=== PATIENT | female | born 1975 | race Caucasian/White ===

== ENCOUNTER 2017-08-17 20:56 | Emergency (ER) | payer MEDICAID ==
[~2017-08-17] VITALS: Ht 154.9 cm; Wt 102.1 kg
[~2017-08-17 20:56] MED LIST: AMIT75TA2 PO; CIPR500T4 PO; CITA20TA12 PO; DOCU-143 PO; FAMO-119 PO; HYDR-3812 PO; ONDA8TAB13 PO; PHEN-639 PO; PREG150C PO; TIZA4TAB11 PO; TRAM-42 PO
--- OUTSIDE RECORDS SUMMARY | 2017-08-17 21:01 | XMS REPORT ---
Author Author MARÍA DE LA PAZ Organization [employer] Address Unknown Phone Unavailable Care Team Providers Care Diesel Technician Name Role Phone MARÍA DE LA PAZ CP Unavailable Allergies, Adverse Reactions, Alerts Substance Reaction Event Type N.K.D.A. Info Not Available Non Drug Allergy Problems Problem Type Condition Code Onset Dates Condition Status Assessment Encounter for dental examination Z01.20 Active Problem Unspecified myalgia and myositis 729.1 Active Medications Medication Code System Code Instructions Start Date End Date Status Dosage Gabapentin (PHN) [facility] [address]-31 300 MG Orally Once a day 1 tablet with evening meal one time Amoxicillin [facility] [address]-22 500 MG Orally Three times a day Nov 15, 2015 Nov 25, 2015 1 capsule Amitriptyline HCl [facility] [address]-41 25 MG Orally Once a day 1 tablet [place] [facility] [address]-63 5-325 MG Orally every 6 hrs Nov 15, 2015 Nov 18, 2015 1 tablet as needed Procedures Procedure Coding System Code Date Dental no charge CPT-4 D0099 Nov 15, 2015 Billing Notes on claim CPT-4 EC109 Nov 15, 2015 LTD ORAL EVALUATION - PROBLEM FOCUS CPT-4 D0140 Nov 15, 2015 Results No Known Results Summary Purpose [employer] Submission
--- OUTSIDE RECORDS SUMMARY | 2017-08-17 21:01 | XMS REPORT ---
Author Author MARÍA DE LA PAZ Organization [employer] Address Unknown Phone Unavailable Care Team Providers Care Health Social Work Professor Name Role Phone MARÍA DE LA PAZ CP Unavailable Allergies, Adverse Reactions, Alerts Substance Reaction Event Type N.K.D.A. Info Not Available Non Drug Allergy Problems Problem Type Condition Code Onset Dates Condition Status Assessment Encounter for dental examination Z01.20 Active Assessment Retained dental root K08.3 Active Problem Unspecified myalgia and myositis 729.1 Active Medications Medication Code System Code Instructions Start Date End Date Status Dosage [place] [facility] [address]-26 5-325 MG Orally every 6 hrs Oct 12, 2015 Oct 16, 2015 1 tablet as needed Amitriptyline HCl [facility] [address]-72 25 MG Orally Once a day 1 tablet Gabapentin (PHN) [facility] [address]-91 300 MG Orally Once a day 1 tablet with evening meal one time Amoxicillin [facility] [address]-34 500 MG Orally Three times a day Oct 12, 2015 Oct 19, 2015 1 capsule Procedures Procedure Coding System Code Date EXTRAC ERUPTED TOOTH/EXPOSED ROOT CPT-4 D7140 Oct 11, 2015 Vital Signs Date/Time: Oct 12, 2015 Blood Pressure Diastolic 76 mmHg Blood Pressure Systolic 112 mmHg Cardiac Monitoring Heart Rate 89 bpm Results No Known Results Summary Purpose [employer] Submission
--- OUTSIDE RECORDS SUMMARY | 2017-08-17 21:01 | XMS REPORT ---
Author Author MARÍA DE LA PAZ Organization [employer] Address Unknown Phone Unavailable Care Team Providers Care Public Accountant Name Role Phone MARÍA DE LA PAZ Unavailable Allergies No Known Allergies Problems Problem Type Condition Code Onset Dates Condition Status Problem Unspecified myalgia and myositis 729.1 Active Medications No Known Medications Results No Known Results Summary Purpose [employer] Submission
--- OUTSIDE RECORDS SUMMARY | 2017-08-17 21:01 | XMS REPORT ---
Author Author MARÍA DE LA PAZ Organization [employer] Address Unknown Phone Unavailable Care Team Providers Care Oil Pump Station Operator Chief Name Role Phone MARÍA DE LA PAZ CP Unavailable Allergies No Known Allergies Problems Problem Type Condition Code Onset Dates Condition Status Assessment Dental examination Z01.20 Active Assessment Pulpitis K04.0 Active Problem Unspecified myalgia and myositis 729.1 Active Medications Medication Code System Code Instructions Start Date End Date Status Dosage [place] [facility] [address]-02 5-325 MG Orally every 6 hrs Dec 01, 2015 1 tablet as needed Procedures Procedure Coding System Code Date RESIN COMPOS - 1 SURFACE POSTERIOR CPT-4 D2391 Dec 01, 2015 RESIN COMPOS - ONE SURFACE ANTERIOR CPT-4 D2330 Dec 01, 2015 RESIN COMPOS - ONE SURFACE ANTERIOR CPT-4 D2330 Dec 01, 2015 RESIN COMPOS - 2 SURFACES ANTERIOR CPT-4 D2331 Dec 01, 2015 EXTRAC ERUPTED TOOTH/EXPOSED ROOT CPT-4 D7140 Dec 01, 2015 Vital Signs Date/Time: Dec 01, 2015 Blood Pressure Diastolic 83 mmHg Blood Pressure Systolic 123 mmHg Results No Known Results Summary Purpose [employer] Submission
--- OUTSIDE RECORDS SUMMARY | 2017-08-17 21:01 | XMS REPORT | Clinical Summary ---
Author Author [facility] Organization [facility] Address Unknown Phone Unavailable Care Team Providers Care Astronomy Professor Name Role Phone PCP Unavailable Source Comments Some departments are not documenting in the electronic medical record. If you do not see the information that you expected, contact Release of Information in the Health Information Management department at [phone] for further assistance in locating additional records.[facility] Allergies No Known Allergies Current Medications Prescription Sig. Disp. Refills Start End Date Status Date pregabalin (LYRICA) 200 Take 200 mg by mouth Active mg capsule twice daily. citalopram (CELEXA) 40 mg Take 40 mg by mouth Active tablet daily. TIZANIDINE HCL (ZANAFLEX Take 5 mg by mouth daily. Active PO) zolpidem (AMBIEN) 10 mg Take 10 mg by mouth at Active tablet bedtime as needed for Sleep. ASPIRIN/ACETAMINOPHEN/CAF Take 1 Tab by mouth as Active FEINE (EXCEDRIN MIGRAINE Needed. PO) butalbital/acetaminophen/ Take 1 Tab by mouth every Active caffeine(+) (FIORICET) 4 hours as needed for 50/325/40 mg tablet Headache. acetaZOLAMIDE (DIAMOX) Take 1 Tab by mouth twice 60 Tab 4 03/29/20 Active 250 mg tabletIndications: daily. 17 Chronic daily headache, Medication overuse headache Active Problems Problem Noted Date Chronic daily headache 03/29/2017 Medication overuse headache 03/29/2017 Family History Medical History Relation Name Comments None Reported Brother Unknown to Patient Father SLE Maternal Aunt Stroke Maternal Grandmother None Reported Mother Heart Disease Sister SLE Sister None Reported Sister None Reported Sister Relation Name Status Comments Brother Alive Father Alive Maternal Aunt Alive Maternal Grandmother Mother Alive Sister Alive Sister Alive Sister Alive Social History Tobacco Use Types Packs/Day Years Used Date Former Smoker Cigarettes 1.5 10 Quit: 11/19/2014 Alcohol Use Drinks/Week oz/Week Comments No 0 Standard 0.0 No history drinks or equivalent Sex Assigned at Date Recorded Not on file Last Filed Vital Signs Vital Sign Reading Time Taken Blood Pressure 128/86 03/29/2017 12:12 PM CDT Pulse 88 03/29/2017 12:12 PM CDT Temperature 37.2 C (98.9 F) 03/29/2017 12:12 PM CDT Respiratory Rate 16 03/29/2017 12:12 PM CDT Oxygen Saturation 100% 03/29/2017 12:12 PM CDT Inhaled Oxygen - - Concentration Weight 104.3 kg (230 lb) 03/29/2017 12:12 PM CDT Height 154.9 cm (5' 1") 03/29/2017 12:12 PM CDT Body Mass Index 43.46 03/29/2017 12:12 PM CDT Plan of Treatment Health Maintenance Due Date Last Done Comments PHYSICAL (COMPREHENSIVE) 1983 EXAM PERTUSSIS VACCINE 1987 TETANUS VACCINE 1993 CERVICAL CANCER SCREENING 2006 BREAST CANCER SCREENING 2016 INFLUENZA VACCINE 08/19/2017 Results Not on filefrom Last 3 Months
[2017-08-17 22:30] LABS: BASOPHILS % (AUTO) 0 % (0-10); EOSINOPHILS # (AUTO) 0.1 10^3/uL (0.0-0.3); EOSINOPHILS % (AUTO) 1 % (0-10); LYMPHOCYTES # (AUTO) 2.6 X 10^3 (1.0-4.0); LYMPHOCYTES % (AUTO) 34 % (12-44); MEAN CORPUSCULAR HEMOGLOBIN 31 PG (25-34); MEAN CORPUSCULAR HGB CONC 33 G/DL (32-36); MEAN CORPUSCULAR VOLUME 94 FL (80-99); MEAN PLATELET VOLUME 9.7 FL (7.4-10.4); MONOCYTES # (AUTO) 0.8 X 10^3 (0.0-1.0); MONOCYTES % (AUTO) 11 % (0-12); NEUTROPHILS # (AUTO) 4.1 X 10^3 (1.8-7.8); NEUTROPHILS % (AUTO) 54 % (42-75); PLATELET COUNT 294 10^3/uL (130-400); RED BLOOD COUNT 4.31 10^6/uL (4.35-5.85); WHITE BLOOD COUNT 7.7 10^3/uL (4.3-11.0)
[2017-08-17 22:40] LABS: ALANINE AMINOTRANSFERASE 85 U/L (0-55); ANION GAP 13 MMOL/L (5-14); ASPARTATE AMINO TRANSFERASE 40 U/L (5-34); BILIRUBIN,TOTAL 0.2 MG/DL (0.1-1.0); BLOOD UREA NITROGEN 11 MG/DL (7-18); BUN/CREATININE RATIO 13; CALCIUM 9.6 MG/DL (8.5-10.1); CARBON DIOXIDE 22 MMOL/L (21-32); CHLORIDE 109 MMOL/L (98-107); CREATININE SERUM 0.85 MG/DL (0.60-1.30); GFR ESTIMATED > 60; GLUCOSE 124 MG/DL (70-105); LIPASE 22 U/L (8-78); MAGNESIUM 1.9 MG/DL (1.8-2.4); POTASSIUM 3.6 MMOL/L (3.6-5.0); SODIUM 144 MMOL/L (135-145); TOTAL PROTEIN 7.9 GM/DL (6.4-8.2)
[2017-08-17 23:00] LABS: TROPONIN I < 0.30 NG/ML (<0.30)
--- NOTE | 2017-08-17 23:03 | ED General ---
General Chief Complaint: Respiratory Problems Stated Complaint: SOB/CHEST TIGHTNESS Nursing Triage Note: PT REPORTS CAN NOT GET BREATHE ALL DAY. FELT "LOOPY" ALSO. PT APPEARS ANXIOUS WITH HYPERVENTILATION UP TO 26 BREATHES A MIN. Nursing Sepsis Screen: No Definite Risk Source of Information: Patient Exam Limitations: No Limitations Allergies and Home Medications Allergies Coded Allergies: No Known Drug Allergies (Unverified , 01/26/16) Home Medications Amitriptyline HCl 75 Mg Tablet, 75 MG PO HS, (Reported) Ciprofloxacin HCl 500 Mg Tablet, 500 MG PO BID, #14 Ref 0 Prescribed by: CONTRERAS SCHMIDT on 07/29/162246 Citalopram Hydrobromide 20 Mg Tablet, 20 MG PO HS, (Reported) Famotidine 20 Mg Tablet, 20 MG PO BID, #60 Ref 0 Prescribed by: CONTRERAS SCHMIDT on 07/29/162255 Ondansetron 8 Mg Tab.rapdis, 8 MG PO Q6H PRN for NAUSEA/VOMITING, #10 Ref 0 Prescribed by: CONTRERAS SCHMIDT on 07/29/162246 Phenazopyridine HCl 100 Mg Tablet, 100 MG PO Q4H PRN for PAIN, #14 Ref 0 Prescribed by: CONTRERAS SCHMIDT on 07/29/162246 Pregabalin 150 Mg Capsule, 150 MG PO, (Reported) Tizanidine HCl 4 Mg Tablet, 8 MG PO HS, (Reported) TAKE 2 (4MG) TABS Past Dhhavkz-Ahvgfa-Rgifpb Hx Patient Social History Alcohol Use: Denies Use Recreational Drug Use: No Smoking Status: Former Smoker Type Used: Cigarettes Recent Foreign Travel: No Contact w/Someone Who Travel: No Recent Infectious Disease Expo: No Recent Hopitalizations: No Immunizations Up To Date Tetanus Booster (TDap): Unknown Seasonal Allergies Seasonal Allergies: No Surgeries History of Surgeries: Yes Surgeries: Gallbladder, Tubal Ligation Respiratory History of Respiratory Disorde: No Cardiovascular History of Cardiac Disorders: No Neurological History of Neurological Disord: Yes Reproductive System Last Menstrual Period: Aug 15, 2017 Genitourinary Genitourinary Disorders: Kidney Stones Gastrointestinal History of Gastrointestinal Di: No Gastrointestinal Disorders: Gall Bladder Disease Musculoskeletal History of Musculoskeletal Dis: Yes Musculoskeletal Disorders: Fibromyalgia Endocrine History of Endocrine Disorders: No HEENT Hearing Impairment: Hard of Hearing Cancer History of Cancer: No Psychosocial History of Psychiatric Problem: No Behavioral Health Disorders: Depression Integumentary History of Skin or Integumenta: No Blood Transfusions History of Blood Disorders: No Family Medical History Significant Family History: No Pertinent Family Hx Physical Exam Vital Signs Vital Sign - Last 12Hours 08/17/17 21:10 Temp 97.2 Pulse 100 Resp 26 B/P (MAP) 172/106 Pulse Ox 97 O2 Delivery Room Air Capillary Refill : Less Than 3 Seconds Progress/Results/Core Measures Results/Orders Lab Results Laboratory Tests Test 08/17/17 21:20 Range/Units White Blood Count 7.7 4.3-11.0 10^3/uL Red Blood Count 4.31 L 4.35-5.85 10^6/uL Hemoglobin 13.3 11.5-16.0 G/DL Hematocrit 41 35-52 % Mean Corpuscular Volume 94 80-99 FL Mean Corpuscular Hemoglobin 31 25-34 PG Mean Corpuscular Hemoglobin Concent 33 32-36 G/DL Red Cell Distribution Width 13.0 10.0-14.5 % Platelet Count 294 130-400 10^3/uL Mean Platelet Volume 9.7 7.4-10.4 FL Neutrophils (%) (Auto) 54 42-75 % Lymphocytes (%) (Auto) 34 12-44 % Monocytes (%) (Auto) 11 0-12 % Eosinophils (%) (Auto) 1 0-10 % Basophils (%) (Auto) 0 0-10 % Neutrophils # (Auto) 4.1 1.8-7.8 X 10^3 Lymphocytes # (Auto) 2.6 1.0-4.0 X 10^3 Monocytes # (Auto) 0.8 0.0-1.0 X 10^3 Eosinophils # (Auto) 0.1 0.0-0.3 10^3/uL Basophils # (Auto) 0.0 0.0-0.1 10^3/uL Sodium Level 144 135-145 MMOL/L Potassium Level 3.6 3.6-5.0 MMOL/L Chloride Level 109 H 98-107 MMOL/L Carbon Dioxide Level 22 21-32 MMOL/L Anion Gap 13 5-14 MMOL/L Blood Urea Nitrogen 11 7-18 MG/DL Creatinine 0.85 0.60-1.30 MG/DL Estimat Glomerular Filtration Rate > 60 BUN/Creatinine Ratio 13 Glucose Level 124 H 70-105 MG/DL Calcium Level 9.6 8.5-10.1 MG/DL Magnesium Level 1.9 1.8-2.4 MG/DL Total Bilirubin 0.2 0.1-1.0 MG/DL Aspartate Amino Transf (AST/SGOT) 40 H 5-34 U/L Alanine Aminotransferase (ALT/SGPT) 85 H 0-55 U/L Alkaline Phosphatase 143 H 40-136 U/L Troponin I < 0.30 <0.30 NG/ML Total Protein 7.9 6.4-8.2 GM/DL Albumin 4.0 3.2-4.5 GM/DL Lipase 22 8-78 U/L TSH [place] Testing 1.22 0.35-4.94 UIU/ML My Orders Orders - HANY MENJIVAR MD Chest Pa/Lat (2 View) (08/17/17 22:21) Cbc With Automated Diff (08/17/17 22:21) Comprehensive Metabolic Panel (08/17/17 22:21) Magnesium (08/17/17 22:21) Thyroid Analyzer (08/17/17 22:21) Troponin I (08/17/17 22:21) Saline Lock/Iv-Start (08/17/17 22:21) Ekg Tracing (08/17/17 22:21) Monitor-Rhythm Ecg Trace Only (08/17/17 22:21) Lipase (08/17/17 22:21) Vital Signs/I&O Vital Sign - Last 12Hours 08/17/17 21:10 Temp 97.2 Pulse 100 Resp 26 B/P (MAP) 172/106 Pulse Ox 97 O2 Delivery Room Air Blood Pressure Mean: 128 Progress Note : Progress Note Workup was unremarkable. Patient feels much better now and is laughing with her friends. I strongly advised her to be checked for sleep apnea as she did have an episode of mild hypoxia (O2 sat 88 percent) while she was in deep sleep. O2 sat did rebound to 97 percent upon waking. She was advised to avoid sedating medications such as Ambien or Zanaflex until she is screened for sleep apnea. Chest pain appeared atypical as it was reproducible with palpation. ECG Initial ECG Impression Date: Aug 17, 2017 Initial ECG Impression Time: 21:12 Initial ECG Rate: 104 Initial ECG Rhythm: S.Tach Comment Sinus tachycardia with no ST elevation or depression. No abnormal intervals or axis deviation. Diagnostic Imaging Diagonstic Imaging: Xray Plain Films/CT/US/NM/MRI: chest Comments Chest x-ray viewed by me and report not available. No acute abnormalities appreciated. Departure Impression Impression: Primary Impression: Atypical chest pain Additional Impressions: Shortness of breath Nausea and vomiting Qualified Codes: R11.2 - Nausea with vomiting, unspecified Disposition: HOME, SELF-CARE Condition: Improved Departure-Patient Inst. Referrals: NO,LOCAL PHYSICIAN (PCP/Family) Primary Care Physician Patient Instructions: Chest Pain That Is Not Caused by the Heart (DC), Obstructive Sleep Apnea, Adult (DC) Add. Discharge Instructions: Follow-up with your primary care provider as soon as possible. Requests to be screened for sleep apnea. Until your screen for sleep apnea and cleared by your doctor, avoid taking sedating medications such as muscle relaxers or Ambien. Return to care if symptoms worsen. Work toward weight loss to improve your breathing and reduce risk of sleep apnea. All discharge instructions reviewed with patient and/or family. Voiced understanding. Copy Copies To 1: CINDY BAPTISTE MD, JOSHUA T MD Aug 17, 2017 23:03
[2017-08-18] VITALS: BP 146/88
--- NOTE | 2017-08-18 07:11 | Diagnostic Imaging Report ---
Clinical indication: Patient with shortness of air onset earlier today. Exam: Chest x-ray PA and lateral views. Comparisons: Chest x-ray dated 07/29/2016. Findings: Lungs/pleura: Lungs are clear. There is no pneumothorax. There is no pleural effusion. Mediastinum: Unremarkable. Pulmonary vasculature: Unremarkable. Heart: Unremarkable. Bones/extrathoracic soft tissue: Unremarkable. Impression: There is no radiographic evidence of acute cardiopulmonary process. Dictated by: Dictated on workstation # [id number]
== END 2017-08-18 | disposition home or self-care (01) ==
LOC: EDUNIT# 20:56 → ER 20:57
DX: R07.89 Other chest pain (principal); R06.02 Shortness of breath; R11.2 Nausea with vomiting, unspecified; F32.9 Major depressive disorder, single episode, unspecified; Z87.448 Personal history of other diseases of urinary system; Z87.891 Personal history of nicotine dependence; Z98.51 Tubal ligation status; Z87.442 Personal history of urinary calculi
CPT/HCPCS: 36415; 71020; 80053; 83690; 83735; 84443; 84484; 85025; 93005; 93041

== ENCOUNTER → 2019-08-19 | Outpatient (CLI) | payer MEDICAID ==
[~2019-08-19] MED LIST changes: +ACHD5005 PO; -HYDR-3812 PO
--- NOTE | 2019-08-19 16:26 | Diagnostic Imaging Report ---
PROCEDURE: US Non-ob pelvis comp/trans. TECHNIQUE: Multiple realtime grayscale images were obtained of the pelvis in various projections endovaginally. Transabdominal imaging was also performed. INDICATION: Menorrhagia. COMPARISON: There are no prior pelvic ultrasound examinations available for comparison. FINDINGS: The CT abdomen/pelvis exam of 07/29/2016 noted that the endometrial lining of the uterus was thickened. On this study the uterus is nongravid and prominent measuring 9.0 x 5.4 x 4.8 cm. The endometrial line is slightly thickened measuring 8 mm. (Normal 5 mm or less). This finding is nonspecific. Correlation with the patient's menstrual cycle will be recommended. Along the posterior aspect of the uterine body/fundus on the right there is a small 1.2 x 0.9 x 1.1 cm rounded hypoechoic area. This may represent a small fibroid. Both ovaries were identified and were generally unremarkable. There is no solid pelvic mass or free fluid collection noted. IMPRESSION: 1. There is no evidence for an acute pelvic abnormality. 2. The endometrial lining of the uterus is slightly thickened but this finding is nonspecific. Correlation with the patient's menstrual cycle is recommended. 3. There does appear to be a small fibroid along the posterior aspect of the uterine body/fundus on the right. Dictated by: Dictated on workstation # [id number]
--- NOTE | 2019-08-19 20:48 | Diagnostic Imaging Report ---
EXAM: Digital mammogram, bilateral screening. COMPARISON: This is the patient's baseline study. There are no current complaints. FINDINGS: There are scattered fibroglandular densities in both breasts which could obscure a lesion. There is no primary or secondary sign of malignancy noted. IMPRESSION: 1. There is no evidence of malignancy. 2. The patient should have her annual bilateral screening mammogram on schedule in August of 2020. ACR BI-RADS Category 1: Negative. Result letter will be mailed to the patient. Note: At least 10% of breast cancer is not imaged by mammography. Dictated by: Dictated on workstation # [id number]
== END ==
LOC: RAD 13:18
PROVIDERS: ATTEND Obstetrics & Gynecology
DX: Z12.31 Encounter for screening mammogram for malignant neoplasm of breast (principal); N92.0 Excessive and frequent menstruation with regular cycle; N94.6 Dysmenorrhea, unspecified; Z87.898 Personal history of other specified conditions; Z80.49 Family history of malignant neoplasm of other genital organs
CPT/HCPCS: 76830; 76856; 77067

== ENCOUNTER 2019-09-04 08:56 | Outpatient (CLI) | payer MEDICAID ==
[~2019-09-04] VITALS: Ht 157.5 cm; Wt 116.0 kg
[2019-09-04] MEDS ORDERED: LISD50CA PO (09:10)
[2019-09-04] MEDS ORDERED: CITA40TA11 PO (09:10)
[2019-09-04] MEDS ORDERED: PREG200C PO (09:10)
[2019-09-04 09:27] VITALS: BP 137/90
[2019-09-04 09:48] LABS: BASOPHILS % (AUTO) 0 % (0-10); EOSINOPHILS # (AUTO) 0.2 10^3/uL (0.0-0.3); EOSINOPHILS % (AUTO) 4 % (0-10); HEMATOCRIT 40 % (35-52); HEMOGLOBIN 13.2 G/DL (11.5-16.0); LYMPHOCYTES # (AUTO) 2.2 X 10^3 (1.0-4.0); LYMPHOCYTES % (AUTO) 41 % (12-44); MEAN CORPUSCULAR HEMOGLOBIN 31 PG (25-34); MEAN CORPUSCULAR HGB CONC 33 G/DL (32-36); MEAN CORPUSCULAR VOLUME 93 FL (80-99); MEAN PLATELET VOLUME 9.4 FL (7.4-10.4); MONOCYTES # (AUTO) 0.6 X 10^3 (0.0-1.0); MONOCYTES % (AUTO) 10 % (0-12); NEUTROPHILS # (AUTO) 2.4 X 10^3 (1.8-7.8); NEUTROPHILS % (AUTO) 44 % (42-75); PLATELET COUNT 255 10^3/uL (130-400); RED CELL DISTRIBUTION WIDTH 13.7 % (10.0-14.5); WHITE BLOOD COUNT 5.4 10^3/uL (4.3-11.0)
[2019-09-04 09:49] LABS: BILIRUBIN,URINE NEGATIVE (NEGATIVE); CLARITY,URINE CLEAR; COLOR,URINE YELLOW; GLUCOSE, URINE (UA) NEGATIVE (NEGATIVE); KETONES,URINE NEGATIVE (NEGATIVE); LEUKOCYTE ESTERASE ,URINE 1+ (NEGATIVE); NITRITE,URINE NEGATIVE (NEGATIVE); PH,URINE 6 (5-9); PROTEIN,URINE 2+ (NEGATIVE)
[2019-09-04 09:56] LABS: BACTERIA,URINE FEW /HPF; SQUAMOUS EPITHELIAL CELL,UR 25-50 /HPF
== END 2019-09-04 09:35 | disposition home or self-care (01) ==
LOC: PREOP 08:56
PROVIDERS: ATTEND Obstetrics & Gynecology
DX: Z01.812 Encounter for preprocedural laboratory examination (principal); N92.0 Excessive and frequent menstruation with regular cycle; N81.9 Female genital prolapse, unspecified; D64.9 Anemia, unspecified; D25.9 Leiomyoma of uterus, unspecified
CPT/HCPCS: 36415; 81000; 85025; 87081; 87088

== ENCOUNTER → 2021-02-22 | Outpatient (CLI) | payer MEDICAID ==
[~2021-02-22] MED LIST changes: +ACET-78 PO; -CIPR500T4 PO; +CIPR500T5 PO; +CITA40TA11 PO; +ESTR1PAT73 TD; +IBUP-844 PO; +LISD50CA PO; +OXC5T PO; +PREG200C PO
== END ==
LOC: LABNPT 05:41
PROVIDERS: ATTEND Psychiatry & Neurology Neurology
DX: Z20.822 Contact with and (suspected) exposure to COVID-19 (principal)
CPT/HCPCS: 87635

== ENCOUNTER 2021-02-24 19:08 | Outpatient (CLI) | payer MEDICAID | END 2021-02-25 06:34 | disposition home or self-care (01) | LOC: SLEEP 19:08 | PROVIDERS: ATTEND Psychiatry & Neurology Neurology | DX: G47.33 Obstructive sleep apnea (adult) (pediatric) (principal) | CPT/HCPCS: 95810 ==

== ENCOUNTER → 2021-08-04 | Outpatient (CLI) | payer MEDICAID | LOC: LABNPT 06:21 | PROVIDERS: ATTEND Psychiatry & Neurology Neurology | DX: Z20.822 Contact with and (suspected) exposure to COVID-19 (principal) | CPT/HCPCS: 87635 ==

== ENCOUNTER → 2021-09-05 | Outpatient (CLI) | payer MEDICAID | LOC: LABNPT 06:49 | PROVIDERS: ATTEND Psychiatry & Neurology Neurology | DX: Z20.822 Contact with and (suspected) exposure to COVID-19 (principal) | CPT/HCPCS: 87635 ==

== ENCOUNTER 2021-09-07 19:32 | Outpatient (CLI) | payer MEDICAID | END 2021-09-08 05:14 | disposition home or self-care (01) | LOC: SLEEP 19:32 | PROVIDERS: ATTEND Psychiatry & Neurology Neurology | DX: G47.33 Obstructive sleep apnea (adult) (pediatric) (principal) | CPT/HCPCS: 95811 ==

== ENCOUNTER 2021-12-15 11:12 | Inpatient (IN) | payer MEDICAID ==
[~2021-12-15] VITALS: Ht 154.9 cm; Wt 102.0 kg
[~2021-12-15 11:12] MED LIST changes: -CITA40TA11 PO; +CITA40TA13 PO
--- NOTE | 2021-12-15 11:30 | ED Cough/URI ---
General Chief Complaint: COVID19 Suspect/Confirmed Stated Complaint: COVID+,SOB, Source: patient Exam Limitations: no limitations (ARMANDO RAJAN APRN) History of Present Illness Date Seen by Provider: Dec 15, 2021 Time Seen by Provider: 11:29 (ARMANDO RAJAN APRN) Initial Comments Here with complaint of significant shortness of breath. Diagnosis Covid positive on 12/13/[address] [facility]. She has not had vaccination. She states that she has had cough for about a month but started feeling worse last week and went to the emergency department on Sunday. They told her to try the meds that they prescribed (azithromycin) and supportive care and to return to another facility if she starts to get short of breath. Does have nausea but no vomiting. Notes that her breathing became much worse this morning and presented here with initial O2 sat in the 70s. She is a non-smoker. Timing/Duration: week, getting worse Severity/Quality: moderate, dry cough Prior Episodes/Possible Cause: occasional episodes Modifying Factors: Worse With Activity, Worse With Coughing; Improves With Oxygen, Improves With Rest Associated Symptoms: cough, fever/chills, muscle aches, nasal congestion, shortness of breath, sore throat (RENNY SHIN MD) Allergies and Home Medications Allergies Coded Allergies: No Known Drug Allergies (Unverified , 01/26/16) Patient Home Medication List Home Medication List Reviewed: Yes (RENNY SHIN MD) Acetaminophen (Acetaminophen) 500 Mg Tablet, 1,000 MG PO Q8HR Prescribed by: MARLENE JONES on 09/17/19 09 Citalopram Hydrobromide (Citalopram HBr) 40 Mg Tablet, 40 MG PO HS, (Reported) Entered as Reported by: PAULA PATEL on 09/04/19 09 Docusate Sodium (Colace) 100 Mg Capsule, 100 MG PO BID Prescribed by: MARLENE JONES on 09/17/19 09 Estradiol (Climara Patch Weekly 0.1mg/hr) 1 Each Patch.tdwk, 1 EACH TD Weekly Prescribed by: MARLENE JONES on 09/17/19 09 Ibuprofen (Ibu) 600 Mg Tablet, 600 MG PO Q6HR Prescribed by: MARLENE JONES on 09/17/19 0908 Lisdexamfetamine Dimesylate (Vyvanse) 50 Mg Capsule, 50 MG PO DAILY, (Reported) Entered as Reported by: PAULA PATEL on 09/04/19 0910 Oxycodone Hcl (Oxycodone IR) 5 Mg Tab, 5 MG PO Q4HR PRN for pain Prescribed by: MARLENE JONES on 09/17/19 0908 Pregabalin (Lyrica) 200 Mg Capsule, 200 MG PO BID, (Reported) Entered as Reported by: PAULA PATEL on 09/04/19 0910 Tizanidine HCl (Zanaflex) 4 Mg Tablet, 4 MG PO HS, (Reported) Entered as Reported by: PAULA PATEL on 01/26/16 1443 Review of Systems Review of Systems Constitutional: see HPI EENTM: nose congestion, throat pain Respiratory: cough, short of breath Cardiovascular: No edema, No palpitations Gastrointestinal: No abdominal pain; nausea; No vomiting Genitourinary: no symptoms reported Musculoskeletal: see HPI Skin: no symptoms reported (RENNY SHIN MD) All Other Systems Reviewed Negative Unless Noted: Yes (RENNY SHIN MD) Past Ixjfque-Jsreqc-Caucwr Hx Patient Social History Tobacco Use?: No Substance use?: No Alcohol Use?: No (RENNY SHIN MD) Immunizations Up To Date Tetanus Booster (TDap): Unknown (ARMANDO RAJAN APRN) Seasonal Allergies Seasonal Allergies: Yes (ARMANDO RAJAN APRN) Past Medical History Surgeries: Yes Gallbladder, Tubal Ligation Respiratory: Yes (POSSIBLE SLEEP APNEA, HAS APPT WITH DR AVILA FOR TESTING) Currently Using CPAP: No Currently Using BIPAP: No Cardiac: No Neurological: Yes Headaches /Migraines Genitourinary: Yes Kidney Stones Gastrointestinal: No Gall Bladder Disease Musculoskeletal: Yes Fibromyalgia Endocrine: No HEENT: Yes Hearing Impairment: Hard of Hearing Cancer: No Psychosocial: Yes Sleep Difficulties, Depression Integumentary: No Blood Disorders: No (ARMANDO RAJAN APRN) Surgeries: Yes Gallbladder, Tubal Ligation Respiratory: No Cardiac: No Neurological: Yes Headaches /Migraines Reproductive Disorders: No Musculoskeletal: Yes Fibromyalgia (RENNY SHIN MD) Family Medical History Reviewed Nursing Family Hx (RENNY SHIN MD) Alcoholism 19 FATHER No Pertinent Family Hx (ARMANDO RAJAN APRN) Physical Exam Vital Signs - First Documented 12/15/21 12/15/21 11:23 12:13 Temp 37.1 Pulse 92 Resp 16 B/P (MAP) 115/57 (76) Pulse Ox 79 O2 Delivery OxyMask O2 Flow Rate 10.00 FiO2 80 (RENNY SHIN MD) Capillary Refill : (ARMANDO RAJAN APRN) Height: 5'1.00" Weight: 225lbs. 0.0oz. 102.949471it; 46.76 BMI Method:Stated (ARMANDO RAJAN APRN) General Appearance: obese HEENT: PERRL/EOMI, pharynx normal Neck: full range of motion, supple Respiratory: no accessory muscle use, decreased breath sounds, wheezing, expiration Cardiovascular: no murmur, tachycardia Gastrointestinal: non tender, soft; No tenderness Extremities: non-tender, normal inspection, no pedal edema, no calf tenderness Neurologic/Psychiatric: alert, normal mood/affect, oriented x 3 Skin: normal color, warm/dry (RENNY SHIN MD) Focused Exam Lactate Level 12/15/21 11:15: Lactic Acid Level 2.18*H (RENNY SHIN MD) Lactic Acid Level Laboratory Tests Test 12/15/21 11:15 Lactic Acid Level 2.18 MMOL/L (0.50-2.00) *H (RENNY SHIN MD) Progress/Results/Core Measures Suspected Sepsis SIRS Temperature: Pulse: Respiratory Rate: Blood Pressure / Mean: (ARMANDO RAJAN APRN) Results/Orders Lab Results Laboratory Tests Test 12/15/21 11:15 12/15/21 11:46 Range/Units Lactic Acid Level 2.18 *H 0.50-2.00 MMOL/L White Blood Count 7.9 4.3-11.0 10^3/uL Red Blood Count 4.75 3.80-5.11 10^6/uL Hemoglobin 14.4 11.5-16.0 g/dL Hematocrit 44 35-52 % Mean Corpuscular Volume 94 80-99 fL Mean Corpuscular Hemoglobin 30 25-34 pg Mean Corpuscular Hemoglobin Concent 32 32-36 g/dL Red Cell Distribution Width 13.4 10.0-14.5 % Platelet Count 243 130-400 10^3/uL Mean Platelet Volume 9.6 9.0-12.2 fL Immature Granulocyte % (Auto) 1 % Neutrophils (%) (Auto) 80 H 42-75 % Lymphocytes (%) (Auto) 12 12-44 % Monocytes (%) (Auto) 7 0-12 % Eosinophils (%) (Auto) 0 0-10 % Basophils (%) (Auto) 0 0-10 % Neutrophils # (Auto) 6.3 1.8-7.8 10^3/uL Lymphocytes # (Auto) 0.9 L 1.0-4.0 10^3/uL Monocytes # (Auto) 0.6 0.0-1.0 10^3/uL Eosinophils # (Auto) 0.0 0.0-0.3 10^3/uL Basophils # (Auto) 0.0 0.0-0.1 10^3/uL Immature Granulocyte # (Auto) 0.1 0.0-0.1 10^3/uL D-Dimer 0.93 H 0.00-0.49 UG/ML Sodium Level 136 135-145 MMOL/L Potassium Level 4.3 3.6-5.0 MMOL/L Chloride Level 99 98-107 MMOL/L Carbon Dioxide Level 25 21-32 MMOL/L Anion Gap 12 5-14 MMOL/L Blood Urea Nitrogen 14 7-18 MG/DL Creatinine 0.83 0.60-1.30 MG/DL Estimat Glomerular Filtration Rate 89 BUN/Creatinine Ratio 17 Glucose Level 221 H 70-105 MG/DL Calcium Level 8.9 8.5-10.1 MG/DL Corrected Calcium 9.1 8.5-10.1 MG/DL Total Bilirubin 0.4 0.1-1.0 MG/DL Aspartate Amino Transf (AST/SGOT) 210 H 5-34 U/L Alanine Aminotransferase (ALT/SGPT) 163 H 0-55 U/L Alkaline Phosphatase 165 H 40-136 U/L C-Reactive Protein High Sensitivity 0.67 H 0.00-0.50 MG/DL Total Protein 7.7 6.4-8.2 GM/DL Albumin 3.8 3.2-4.5 GM/DL Procalcitonin 0.20 H <0.10 NG/ML (RENNY SHIN MD) My Orders Orders - RENNY SHIN MD Lactated Ringers (Lr 1000 Ml Iv Solution (12/15/21 11:56) Albuterol Inhaler (Albuterol) (12/15/21 12:00) Dexamethasone Tablet (Decadron Tablet) (12/15/21 12:00) Covid-19 External Lab Results (12/15/21 11:58) Isolation Central Supply Req (12/15/21 11:58) (RENNY SHIN MD) Medications Given in ED Current Medications Medications Dose Ordered Sig/Job Route Start Time Stop Time Status Last Admin Dose Admin Albuterol Sulfate 4 PUFFS Q2H PRN IH 12/15/21 12:00 12/15/21 12:06 8.5 GM Ondansetron HCl 8 mg ONCE ONCE IVP 12/15/21 11:45 12/15/21 11:46 DC 12/15/21 12:05 8 MG (RENNY SHIN MD) Vital Signs/I&O 12/15/21 12/15/21 12/15/21 11:23 11:23 12:13 Temp 37.1 Pulse 92 Resp 16 B/P (MAP) 115/57 (76) Pulse Ox 79 95 O2 Delivery OxyMask Vapotherm O2 Flow Rate 10.00 30.00 FiO2 80 (RENNY SHIN MD) Vital Signs/I&O Capillary Refill : (ARMANDO RAJAN APRN) Progress Note : Progress Note Seen and evaluated. IV, labs, blood cultures and lactic acid ordered. Chest x- ray ordered. This does show bilateral patchy infiltrates consistent with Covid pneumonia. We will go ahead and initiate Decadron 6 mg p.o. as well as albuterol inhaler 4 puffs via chamber now and 1 L of LR bolus. She did receive Zofran 4 mg IV for nausea. I did discuss with her regarding Actemra and its emergency use authorization including risk and benefits and this is a study medication. Patient elects to take that if available. Patient will need admission. She is requiring 10 L via simple facemask is in the low to mid 90s with that. We will change to Vapotherm as I think this will be more effective and then call admitting team after labs are available. Monitor patient. 1230: Patient is currently on Vapotherm at 30 L and 80% and is satting 94% and comfortable. Patient will require admission. 23 8: I did discuss the case with Dr. Ferrera and he accepts patient for admission, inpatient status. Discussed with patient who agrees with plan. (RENNY SHIN MD) Diagnostic Imaging Diagonstic Imaging: Xray Plain Films/CT/US/NM/MRI: chest Comments Bilateral patchy infiltrates consistent with Covid pneumonia. See full report for details. [facility] [place], [place] NAME: HERBER BUT[facility]ER [facility] REC#: [id number] PT STATUS: REG ER : 1975 PHYSICIAN: ARMANDO RAJAN APRN ADMIT DATE: 12/15/21/ER Signed Date of Exam:12/15/21 CHEST 1 VIEW, AP/PA ONLY INDICATION: Covid. Comparison made with prior examination 08/17/2017 FINDINGS: Heart size is normal. There are bilateral pulmonary infiltrates. There is no pleural fusion or pneumothorax. Mediastinum is unremarkable. IMPRESSION: Patchy bilateral pulmonary infiltrates suspect for Covid pneumonia. Dictated by: Dictated on workstation # [id number] Dict: 12/15/21 1212 Trans: 12/15/21 1219 [id number] Interpreted by: GINGER COMBS MD Electronically signed by: GINGER COMBS MD 12/15/21 1219 Reviewed: Reviewed by Me (RENNY SHIN MD) Departure Communication (Admissions) Time/Spoke to Admitting Phy: 12:38 (RENNY SHIN MD) Impression Primary Impression: Pneumonia due to COVID-19 virus Additional Impression: Hypoxia Disposition: ADMITTED INPATIENT Condition: Stable Admissions Decision to Admit Reason: Admit from ER (General) Decision to Admit/Date: Dec 15, 2021 Time/Decision to Admit Time: 12:38 (RENNY SHIN MD) Departure-Patient Inst. Referrals: CINDY BAPTISTE MD (PCP/Family) Primary Care Physician ARMANDO RAJAN APRN Dec 15, 2021 11:29 RENNY SHIN MD Dec 15, 2021 11:58
[2021-12-15] MEDS ORDERED: ONDANSETRON 4 MG/2 ML (SDV) Z0FRAN IVP ONE (11:45)
[2021-12-15 11:51] LABS: BASOPHILS % (AUTO) 0 % (0-10); EOSINOPHILS % (AUTO) 0 % (0-10); HEMATOCRIT 44 % (35-52); HEMOGLOBIN 14.4 g/dL (11.5-16.0); LYMPHOCYTES # (AUTO) 0.9 10^3/uL (1.0-4.0); LYMPHOCYTES % (AUTO) 12 % (12-44); MEAN CORPUSCULAR HEMOGLOBIN 30 pg (25-34); MEAN CORPUSCULAR HGB CONC 32 g/dL (32-36); MEAN CORPUSCULAR VOLUME 94 fL (80-99); MEAN PLATELET VOLUME 9.6 fL (9.0-12.2); MONOCYTES # (AUTO) 0.6 10^3/uL (0.0-1.0); MONOCYTES % (AUTO) 7 % (0-12); NEUTROPHILS # (AUTO) 6.3 10^3/uL (1.8-7.8); NEUTROPHILS % (AUTO) 80 % (42-75); PLATELET COUNT 243 10^3/uL (130-400); WHITE BLOOD COUNT 7.9 10^3/uL (4.3-11.0)
[2021-12-15] MEDS ORDERED: LACTATED RINGERS 1,000 ML IV STA (11:56)
[2021-12-15 12:00] LABS: ALBUMIN 3.8 GM/DL (3.2-4.5); POTASSIUM 4.3 MMOL/L (3.6-5.0)
[2021-12-15] MEDS ORDERED: RT-ALBUTEROL HFA 8.5 GM INHALER IH PRN ×2 (12:00→15:30)
[2021-12-15] MEDS ORDERED: dexAMETHasone 6 MG TAB (DECADRON) PO SCH (12:00)
[2021-12-15 12:01] LABS: CALCIUM 8.9 MG/DL (8.5-10.1)
[2021-12-15 12:03] LABS: TOTAL PROTEIN 7.7 GM/DL (6.4-8.2)
[2021-12-15 12:04] LABS: BILIRUBIN,TOTAL 0.4 MG/DL (0.1-1.0)
[2021-12-15 12:06] LABS: CREATININE SERUM 0.83 MG/DL (0.60-1.30)
--- NOTE | 2021-12-15 12:17 | Diagnostic Imaging Report ---
INDICATION: Covid. Comparison made with prior examination 08/17/2017 FINDINGS: Heart size is normal. There are bilateral pulmonary infiltrates. There is no pleural fusion or pneumothorax. Mediastinum is unremarkable. IMPRESSION: Patchy bilateral pulmonary infiltrates suspect for Covid pneumonia. Dictated by: Dictated on workstation # [id number]
[2021-12-15] MEDS ORDERED: fentaNYL INJ 100 MCG/2 ML AMP IVP STA (13:23)
[2021-12-15] MEDS ORDERED: KETOROLAC 30 MG/ML VIAL IVP STA (13:23)
[2021-12-15] MEDS ORDERED: ONDANSETRON 4 MG (ZOFRAN) ORAL DISSOLVE TAB PO PRN (13:30)
[2021-12-15] MEDS ORDERED: MELATONIN 3 MG TABLET PO PRN (13:30)
[2021-12-15] MEDS ORDERED: ONDANSETRON 4 MG/2 ML (SDV) Z0FRAN IV PRN (13:30)
[2021-12-15] MEDS ORDERED: ANTACID SUSP 30 ML UDC (MYLANTA) PO PRN (13:30)
[2021-12-15] MEDS ORDERED: polyethylene glycoL POWDER 17 GM (MIRALAX) PACK PO PRN (13:30)
[2021-12-15] MEDS ORDERED: diphenhydrAMINE 25 MG TAB (BENADRYL) PO PRN (13:30)
[2021-12-15] MEDS ORDERED: TOCILIZUMAB INJECTION (NON-FOR 800 MG in NS (IVPB) 60 ML IV ONE (14:00)
[2021-12-15 14:21] VITALS: BP 124/66
[2021-12-15 15:18] VITALS: BP 124/66
[2021-12-15 15:30] VITALS: BP 123/68
[2021-12-15] MEDS: inSUlin ASPART (NovoLOG) 1 UNIT/0.01 ML (CHARGE PER UNIT) SC SCH ×2 (16:22→20:50)
[2021-12-15] MEDS: ENOXAPARIN 60 MG/0.6 ML (LOVENOX) SYR SC SCH (16:22)
[2021-12-15] MEDS: ACETAMINOPHEN 325 MG TABLET PO PRN ×2 (16:22→20:56)
[2021-12-15] MEDS: RT-ALBUTEROL HFA 8.5 GM INHALER IH SCH ×2 (18:39→21:56)
[2021-12-15 20:56] VITALS: BP 136/74
[2021-12-15 23:04] VITALS: BP 120/58
[2021-12-16] MEDS: RT-ALBUTEROL HFA 8.5 GM INHALER IH SCH ×6 (02:03→21:58)
[2021-12-16 03:42] LABS: BASOPHILS % (AUTO) 0 % (0-10); EOSINOPHILS % (AUTO) 0 % (0-10); HEMATOCRIT 43 % (35-52); HEMOGLOBIN 14.3 g/dL (11.5-16.0); LYMPHOCYTES # (AUTO) 0.7 10^3/uL (1.0-4.0); LYMPHOCYTES % (AUTO) 20 % (12-44); MEAN CORPUSCULAR HEMOGLOBIN 31 pg (25-34); MEAN CORPUSCULAR HGB CONC 33 g/dL (32-36); MEAN CORPUSCULAR VOLUME 92 fL (80-99); MEAN PLATELET VOLUME 9.8 fL (9.0-12.2); MONOCYTES # (AUTO) 0.3 10^3/uL (0.0-1.0); MONOCYTES % (AUTO) 9 % (0-12); NEUTROPHILS # (AUTO) 2.5 10^3/uL (1.8-7.8); NEUTROPHILS % (AUTO) 70 % (42-75); PLATELET COUNT 211 10^3/uL (130-400); WHITE BLOOD COUNT 3.6 10^3/uL (4.3-11.0)
[2021-12-16 03:54] LABS: ALBUMIN 3.6 GM/DL (3.2-4.5)
[2021-12-16 03:55] LABS: POTASSIUM 3.9 MMOL/L (3.6-5.0)
[2021-12-16 03:56] LABS: TOTAL PROTEIN 7.7 GM/DL (6.4-8.2)
[2021-12-16 03:57] LABS: CALCIUM 8.8 MG/DL (8.5-10.1)
[2021-12-16 03:58] LABS: BILIRUBIN,TOTAL 0.4 MG/DL (0.1-1.0)
[2021-12-16 04:01] LABS: CREATININE SERUM 0.74 MG/DL (0.60-1.30)
[2021-12-16 04:02] LABS: BILIRUBIN,DIRECT 0.2 MG/DL (0.0-0.3); BILIRUBIN,INDIRECT 0.2 MG/DL
[2021-12-16 04:03] LABS: MAGNESIUM 2.1 MG/DL (1.6-2.4)
[2021-12-16] MEDS: POTASSIUM CL 10MEQ/50ML IVPB 50 ML IV SCH (04:04)
[2021-12-16] MEDS: KCL 20 MEQ TAB (K-DUR) PO SCH (04:04)
[2021-12-16] MEDS: MAGNESIUM 1 GM/100 ML IVPB 100 ML IV SCH (04:14)
[2021-12-16 05:00] VITALS: BP 139/72
[2021-12-16] MEDS: ENOXAPARIN 60 MG/0.6 ML (LOVENOX) SYR SC SCH ×2 (05:12→17:11)
[2021-12-16] MEDS: dexAMETHasone 6 MG TAB (DECADRON) PO SCH (05:12)
[2021-12-16] MEDS: inSUlin ASPART (NovoLOG) 1 UNIT/0.01 ML (CHARGE PER UNIT) SC SCH ×4 (05:12→20:28)
[2021-12-16 08:08] VITALS: BP 137/77
[2021-12-16] MEDS ORDERED: PHARMACY TO DOSE SQ SCH (09:00)
[2021-12-16 11:07] VITALS: BP 145/87
[2021-12-16] MEDS ORDERED: ALBU18HF2 INH (11:19)
[2021-12-16] MEDS ORDERED: PREG200C28 PO (11:19)
[2021-12-16] MEDS ORDERED: TIZA-186 PO (11:19)
[2021-12-16] MEDS ORDERED: ESTR1TAB24 PO (11:19)
[2021-12-16] MEDS ORDERED: CETI10TA17 PO (11:19)
[2021-12-16] MEDS ORDERED: METH4TAB10 PO (11:19)
[2021-12-16] MEDS ORDERED: AZIT250T12 PO (11:19)
[2021-12-16] MEDS ORDERED: CITA40TA13 PO (11:20)
[2021-12-16 15:32] VITALS: BP 129/76
--- NOTE | 2021-12-16 16:55 | History & Physical-Hospitalist ---
History of Present Illness HPI/Chief Complaint Rosanne Dickerson is a 46 year old female with PMH fibromyalgia, chronic pain, morbid obesity, who presented with shortness of breath. She has also had a cough. She reports fevers and chills. She reports nausea and vomiting. She has been having diarrhea today. She has had body aches. She did not receive a COVID vaccine. Source: patient Exam Limitations: no limitations Date Seen 12/16/21 Time Seen by a Provider: 12:30 Attending Physician Nathan Godinez MD PCP Serge Shaw MD Referring Physician Date of Admission Dec 15, 2021 at 12:44 Home Medications & Allergies Home Medications Reviewed patient Home Medication Reconciliation performed by pharmacy medication reconciliations roofing technician and/or nursing. Patients Allergies have been reviewed. Allergies Allergies Coded Allergies No Known Drug Allergies (Unverified01/26/16) Past Gpetpyn-Qiaees-Lxoqce Hx Patient Social History Tobacco Use?: No Substance use?: No Alcohol Use?: No Pt feels they are or have been: No Immunizations Up To Date Tetanus Booster (TDap): Unknown Seasonal Allergies Seasonal Allergies: Yes Current Status Advance Directives: No Communicates: Verbally Primary Language: Colombian Preferred Spoken Language: Colombian Sensory deficits: Hearing impairment Past Medical History Surgeries: Gallbladder, Tubal Ligation Currently Using CPAP: No Currently Using BIPAP: No Headaches /Migraines Kidney Stones Gall Bladder Disease Fibromyalgia Hearing Impairment: Hard of Hearing Sleep Difficulties, Depression Blood Disorders: No Family Medical History Reviewed Nursing Family Hx Alcoholism 19 FATHER No Pertinent Family Hx Review of Systems Constitutional: chills, fever, malaise EENTM: no symptoms reported Respiratory: cough, short of breath Cardiovascular: no symptoms reported Gastrointestinal: diarrhea, nausea, vomiting Genitourinary: no symptoms reported Musculoskeletal: muscle pain Skin: no symptoms reported Psychiatric/Neurological: No Symptoms Reported Physical Exam Physical Exam Vital Signs Vital Signs - First Documented 12/15/21 12/15/21 11:23 12:13 Temp 37.1 Pulse 92 Resp 16 B/P (MAP) 115/57 (76) Pulse Ox 79 O2 Delivery OxyMask O2 Flow Rate 10.00 FiO2 80 Capillary Refill : Less Than 3 Seconds Height, Weight, BMI Height: 5'1.00" Weight: 225lbs. 0.0oz. 102.317597jx; 42.51 BMI Method:Stated General Appearance: No Apparent Distress, Obese HEENT: PERRL/EOMI, Pharynx Normal Neck: Normal Inspection, Supple Respiratory: No Respiratory Distress, Decreased Breath Sounds, Other (wearing Vapotherm) Cardiovascular: Regular Rate, Rhythm, No Edema, No Murmur Gastrointestinal: Normal Bowel Sounds, Soft Extremity: Normal Inspection, No Pedal Edema Neurologic/Psychiatric: Alert, No Motor/Sensory Deficits, Normal Mood/Affect Skin: Warm/Dry, Erythema (facial flushing) Results Results/Procedures Labs Laboratory Tests 12/15/21 11:46 12/16/21 03:25 Patient resulted labs reviewed. Imaging: Reviewed Imaging Report Assessment/Plan Admission Diagnosis Acute respiratory failure due to COVID-19 Admission Status: Inpatient Order (span 2 midnights) Reason for Inpatient Admission: Respiratory failure Assessment and Plan Acute respiratory failure due to COVID-19 Lymphopenia due to COVID-19 Elevated LFTs Elevated d-dimer Started on Decadron ER discussed Actemra, risks/benefits/EUA use, patient agrees Ddimer mildly elevated Prophylactic Lovenox Procalcitonin <0.25, antibiotics not indicted Vapotherm as needed Hyperglycemia Likely type II diabetes mellitus Steroid induced hyperglycemia Blood sugar >200 on arrival A1C pending Levemir Sliding scale insulin Chronic pain Fibromyalgia Continue home meds Morbid obesity Clinically significant, no acute management needs DVT prophylaxis: Lovenox Diagnosis/Problems Diagnosis/Problems (1) Acute respiratory failure due to COVID-19 Status: Acute (2) Pneumonia due to COVID-19 virus Status: Acute (3) Lymphopenia due to COVID-19 virus Status: Acute (4) Elevated d-dimer Status: Acute (5) Elevated LFTs Status: Acute (6) Hyperglycemia Status: Acute (7) Steroid-induced hyperglycemia Status: Acute (8) Chronic pain Status: Chronic (9) Fibromyalgia Status: Chronic (10) Morbid obesity Status: Chronic NATHAN GODINEZ MD Dec 16, 2021 16:55
[2021-12-16] MEDS ORDERED: guaiFENesin/DM (ROBITUSSIN DM) 10 ML UDC PO PRN (17:00)
[2021-12-16] MEDS: ACETAMINOPHEN 325 MG TABLET PO PRN (17:11)
[2021-12-16 20:09] VITALS: BP 147/87
[2021-12-16] MEDS: ESTRADIOL 1 MG TAB (ESTRACE) PO SCH (20:28)
[2021-12-16] MEDS: PREGABALIN 100 MG (LYRICA) CAPSULE PO SCH (20:28)
[2021-12-16 23:30] VITALS: BP 137/84
[2021-12-17] MEDS: RT-ALBUTEROL HFA 8.5 GM INHALER IH SCH ×6 (02:37→22:15)
[2021-12-17 03:11] VITALS: BP 97/52
[2021-12-17 06:28] LABS: BASOPHILS % (AUTO) 0 % (0-10); EOSINOPHILS % (AUTO) 0 % (0-10); HEMATOCRIT 44 % (35-52); HEMOGLOBIN 14.2 g/dL (11.5-16.0); LYMPHOCYTES # (AUTO) 0.9 10^3/uL (1.0-4.0); LYMPHOCYTES % (AUTO) 18 % (12-44); MEAN CORPUSCULAR HEMOGLOBIN 30 pg (25-34); MEAN CORPUSCULAR HGB CONC 32 g/dL (32-36); MEAN CORPUSCULAR VOLUME 94 fL (80-99); MEAN PLATELET VOLUME 9.5 fL (9.0-12.2); MONOCYTES # (AUTO) 0.4 10^3/uL (0.0-1.0); MONOCYTES % (AUTO) 8 % (0-12); NEUTROPHILS # (AUTO) 3.7 10^3/uL (1.8-7.8); NEUTROPHILS % (AUTO) 73 % (42-75); PLATELET COUNT 273 10^3/uL (130-400)
[2021-12-17 06:38] LABS: CALCIUM 8.8 MG/DL (8.5-10.1); CREATININE SERUM 0.76 MG/DL (0.60-1.30); MAGNESIUM 2.1 MG/DL (1.6-2.4); POTASSIUM 3.9 MMOL/L (3.6-5.0)
[2021-12-17] MEDS: POTASSIUM CL 10MEQ/50ML IVPB 50 ML IV SCH (06:40)
[2021-12-17] MEDS: KCL 20 MEQ TAB (K-DUR) PO SCH (06:40)
[2021-12-17] MEDS: MAGNESIUM 1 GM/100 ML IVPB 100 ML IV SCH (06:43)
[2021-12-17] MEDS: ENOXAPARIN 60 MG/0.6 ML (LOVENOX) SYR SC SCH (06:50)
[2021-12-17] MEDS: dexAMETHasone 6 MG TAB (DECADRON) PO SCH (06:50)
[2021-12-17] MEDS: inSUlin ASPART (NovoLOG) 1 UNIT/0.01 ML (CHARGE PER UNIT) SC SCH ×4 (06:50→20:43)
[2021-12-17 08:00] VITALS: BP 121/68
[2021-12-17] MEDS ORDERED: LISDEXAMFETAMINE 50 MG PO SCH (09:00)
[2021-12-17] MEDS: PREGABALIN 100 MG (LYRICA) CAPSULE PO SCH ×2 (10:01→20:42)
[2021-12-17] MEDS: LORATADINE (CLARITIN) 10 MG TAB PO SCH (10:01)
[2021-12-17 12:00] VITALS: BP 142/84
[2021-12-17 16:00] VITALS: BP 145/86
--- NOTE | 2021-12-17 16:35 | Progress Note - Hospitalist ---
Subjective HPI/CC On Admission Date Seen by Provider: Dec 17, 2021 Time Seen by Provider: 12:30 Rosanne Dickerson is a 46 year old female with PMH fibromyalgia, chronic pain, morbid obesity, who presented with shortness of breath. She has also had a cough. She reports fevers and chills. She reports nausea and vomiting. She has been having diarrhea today. She has had body aches. She did not receive a COVID vaccine. Subjective/Events-last exam She is still short of breath. Her cough is a little better. She has not been eating much. She denies pain. She is still having diarrhea. Focused Exam Lactate Level 12/15/21 11:15: Lactic Acid Level 2.18*H 12/15/21 13:54: Lactic Acid Level 1.40 Objective Exam Vital Signs Vital Signs Date Time Temp Pulse Resp B/P (MAP) Pulse Ox O2 Delivery O2 Flow Rate FiO2 12/17/21 14:51 91 Vapotherm 27.00 55 12/17/21 12:00 36.3 88 22 142/84 (103) Capillary Refill : Less Than 3 Seconds General Appearance: No Apparent Distress, Obese Respiratory: No Respiratory Distress, Decreased Breath Sounds Cardiovascular: Regular Rate, Rhythm, No Murmur Gastrointestinal: Normal Bowel Sounds, Non Tender, Soft Extremity: Normal Inspection, Non Tender, No Pedal Edema Neurologic/Psychiatric: Alert, Depressed Affect Skin: Normal Color, Warm/Dry Results/Procedures Lab Laboratory Tests 12/17/21 05:08 12/17/21 05:58 Patient resulted labs reviewed. Imaging: Reviewed Imaging Report Assessment/Plan Assessment and Plan Assess & Plan/Chief Complaint Acute respiratory failure due to COVID-19 Lymphopenia due to COVID-19 Elevated LFTs Elevated d-dimer Decadron s/p Actemra Ddimer mildly elevated, trending down Prophylactic Lovenox Vapotherm as needed, requirement slightly improved New onset type II diabetes mellitus Steroid induced hyperglycemia A1C 7.4% Levemir Sliding scale insulin Chronic pain Fibromyalgia Continue home meds Morbid obesity Clinically significant, no acute management needs DVT prophylaxis: Lovenox Diagnosis/Problems Diagnosis/Problems (1) Acute respiratory failure due to COVID-19 Status: Acute (2) Pneumonia due to COVID-19 virus Status: Acute (3) Lymphopenia due to COVID-19 virus Status: Acute (4) Elevated d-dimer Status: Acute (5) Elevated LFTs Status: Acute (6) New onset type 2 diabetes mellitus Status: Acute (7) Steroid-induced hyperglycemia Status: Acute (8) Chronic pain Status: Chronic (9) Fibromyalgia Status: Chronic (10) Morbid obesity Status: Chronic NATHAN GODINEZ MD Dec 17, 2021 16:35
[2021-12-17] MEDS: ENOXAPARIN 40 MG/0.4 ML (LOVENOX) SYR SC SCH (17:03)
[2021-12-17] MEDS: ACETAMINOPHEN 325 MG TABLET PO PRN (17:03)
[2021-12-17] MEDS: ESTRADIOL 1 MG TAB (ESTRACE) PO SCH (20:42)
[2021-12-17 23:44] VITALS: BP 94/60
[2021-12-18] MEDS: RT-ALBUTEROL HFA 8.5 GM INHALER IH SCH ×6 (02:39→22:39)
[2021-12-18 06:09] LABS: BASOPHILS % (AUTO) 0 % (0-10); EOSINOPHILS % (AUTO) 0 % (0-10); HEMATOCRIT 43 % (35-52); HEMOGLOBIN 14.1 g/dL (11.5-16.0); LYMPHOCYTES % (AUTO) 25 % (12-44); MEAN CORPUSCULAR HEMOGLOBIN 30 pg (25-34); MEAN CORPUSCULAR HGB CONC 33 g/dL (32-36); MEAN CORPUSCULAR VOLUME 93 fL (80-99); MEAN PLATELET VOLUME 9.4 fL (9.0-12.2); MONOCYTES # (AUTO) 0.4 10^3/uL (0.0-1.0); MONOCYTES % (AUTO) 9 % (0-12); NEUTROPHILS # (AUTO) 2.5 10^3/uL (1.8-7.8); NEUTROPHILS % (AUTO) 65 % (42-75); PLATELET COUNT 269 10^3/uL (130-400); WHITE BLOOD COUNT 3.9 10^3/uL (4.3-11.0)
[2021-12-18 06:26] LABS: CALCIUM 8.8 MG/DL (8.5-10.1); CREATININE SERUM 0.68 MG/DL (0.60-1.30); MAGNESIUM 2.1 MG/DL (1.6-2.4); POTASSIUM 3.8 MMOL/L (3.6-5.0)
[2021-12-18] MEDS: MAGNESIUM 1 GM/100 ML IVPB 100 ML IV SCH (06:31)
[2021-12-18] MEDS: POTASSIUM CL 10MEQ/50ML IVPB 50 ML IV SCH (06:31)
[2021-12-18] MEDS: inSUlin ASPART (NovoLOG) 1 UNIT/0.01 ML (CHARGE PER UNIT) SC SCH ×4 (06:31→21:02)
[2021-12-18] MEDS: KCL 20 MEQ TAB (K-DUR) PO SCH (06:31)
[2021-12-18] MEDS: ENOXAPARIN 40 MG/0.4 ML (LOVENOX) SYR SC SCH ×2 (06:44→16:35)
[2021-12-18] MEDS: dexAMETHasone 6 MG TAB (DECADRON) PO SCH (06:44)
[2021-12-18 07:47] VITALS: BP 129/81
[2021-12-18] MEDS: PREGABALIN 100 MG (LYRICA) CAPSULE PO SCH ×2 (08:55→21:02)
[2021-12-18] MEDS: LORATADINE (CLARITIN) 10 MG TAB PO SCH (08:55)
--- NOTE | 2021-12-18 14:25 | Progress Note - Hospitalist ---
Subjective HPI/CC On Admission Date Seen by Provider: Dec 18, 2021 Time Seen by Provider: 11:10 Rosanne Dickerson is a 46 year old female with PMH fibromyalgia, chronic pain, morbid obesity, who presented with shortness of breath. She has also had a cough. She reports fevers and chills. She reports nausea and vomiting. She has been having diarrhea today. She has had body aches. She did not receive a COVID vaccine. Subjective/Events-last exam She is not feeling much better. She is still short of breath. She is coughing up phlegm. She has a good appetite. Objective Exam Vital Signs Vital Signs Date Time Temp Pulse Resp B/P (MAP) Pulse Ox O2 Delivery O2 Flow Rate FiO2 12/18/21 12:42 94 High Flow N/C 7.00 12/18/21 08:00 55 12/18/21 07:47 36.1 83 20 129/81 (97) Capillary Refill : Less Than 3 Seconds General Appearance: No Apparent Distress, Obese Respiratory: No Respiratory Distress, Decreased Breath Sounds Cardiovascular: Regular Rate, Rhythm, No Murmur Gastrointestinal: Normal Bowel Sounds, Non Tender, Soft Extremity: Normal Inspection, Non Tender, No Pedal Edema Neurologic/Psychiatric: Alert, No Motor/Sensory Deficits, Normal Mood/Affect Skin: Normal Color, Warm/Dry Results/Procedures Lab Laboratory Tests 12/18/21 05:45 Patient resulted labs reviewed. Imaging: Reviewed Imaging Report Assessment/Plan Assessment and Plan Assess & Plan/Chief Complaint Acute respiratory failure due to COVID-19 Lymphopenia due to COVID-19 Elevated LFTs Elevated d-dimer Decadron s/p Actemra Ddimer mildly elevated, trending down Prophylactic Lovenox Vapotherm as needed, requirement improving New onset type II diabetes mellitus Steroid induced hyperglycemia A1C 7.4% Levemir Sliding scale insulin Chronic pain Fibromyalgia Continue home meds Morbid obesity Clinically significant, no acute management needs DVT prophylaxis: Lovenox Diagnosis/Problems Diagnosis/Problems (1) Acute respiratory failure due to COVID-19 Status: Acute (2) Pneumonia due to COVID-19 virus Status: Acute (3) Lymphopenia due to COVID-19 virus Status: Acute (4) Elevated d-dimer Status: Acute (5) Elevated LFTs Status: Acute (6) New onset type 2 diabetes mellitus Status: Acute (7) Steroid-induced hyperglycemia Status: Acute (8) Chronic pain Status: Chronic (9) Fibromyalgia Status: Chronic (10) Morbid obesity Status: Chronic NATHAN GODINEZ MD Dec 18, 2021 14:25
[2021-12-18] MEDS: ACETAMINOPHEN 325 MG TABLET PO PRN (15:25)
[2021-12-18 16:00] VITALS: BP 136/76
[2021-12-18 20:13] VITALS: BP 129/81
[2021-12-18] MEDS: ESTRADIOL 1 MG TAB (ESTRACE) PO SCH (21:01)
[2021-12-19 00:30] VITALS: BP 117/67
[2021-12-19] MEDS: RT-ALBUTEROL HFA 8.5 GM INHALER IH SCH ×3 (02:16→10:40)
[2021-12-19 03:24] LABS: BASOPHILS % (AUTO) 0 % (0-10); EOSINOPHILS % (AUTO) 0 % (0-10); HEMATOCRIT 43 % (35-52); HEMOGLOBIN 14.3 g/dL (11.5-16.0); LYMPHOCYTES % (AUTO) 28 % (12-44); MEAN CORPUSCULAR HEMOGLOBIN 31 pg (25-34); MEAN CORPUSCULAR HGB CONC 33 g/dL (32-36); MEAN CORPUSCULAR VOLUME 92 fL (80-99); MEAN PLATELET VOLUME 9.4 fL (9.0-12.2); MONOCYTES # (AUTO) 0.4 10^3/uL (0.0-1.0); MONOCYTES % (AUTO) 11 % (0-12); NEUTROPHILS # (AUTO) 2.1 10^3/uL (1.8-7.8); NEUTROPHILS % (AUTO) 60 % (42-75); PLATELET COUNT 271 10^3/uL (130-400); WHITE BLOOD COUNT 3.5 10^3/uL (4.3-11.0)
[2021-12-19 03:53] LABS: CALCIUM 8.7 MG/DL (8.5-10.1); CREATININE SERUM 0.67 MG/DL (0.60-1.30); MAGNESIUM 2.1 MG/DL (1.6-2.4); POTASSIUM 3.8 MMOL/L (3.6-5.0)
[2021-12-19] MEDS: POTASSIUM CL 10MEQ/50ML IVPB 50 ML IV SCH (05:18)
[2021-12-19] MEDS: KCL 20 MEQ TAB (K-DUR) PO SCH (05:19)
[2021-12-19] MEDS: MAGNESIUM 1 GM/100 ML IVPB 100 ML IV SCH (05:19)
[2021-12-19] MEDS: ENOXAPARIN 40 MG/0.4 ML (LOVENOX) SYR SC SCH (06:21)
[2021-12-19] MEDS: dexAMETHasone 6 MG TAB (DECADRON) PO SCH (06:44)
[2021-12-19] MEDS: inSUlin ASPART (NovoLOG) 1 UNIT/0.01 ML (CHARGE PER UNIT) SC SCH ×2 (06:46→11:22)
[2021-12-19 08:00] VITALS: BP 124/71
[2021-12-19] MEDS ORDERED: metFORMIN 500 MG (GLUCOPHAGE) TAB PO ONE (08:00)
[2021-12-19] MEDS: LORATADINE (CLARITIN) 10 MG TAB PO SCH (09:16)
[2021-12-19] MEDS: PREGABALIN 100 MG (LYRICA) CAPSULE PO SCH (09:16)
[2021-12-19] MEDS ORDERED: metFORMIN 500 MG (GLUCOPHAGE) TAB PO NR (10:00)
[2021-12-19] MEDS ORDERED: METF-397 PO (10:57)
[2021-12-20] MEDS ORDERED: metFORMIN 500 MG (GLUCOPHAGE) TAB PO SCH (07:00)
== END 2021-12-19 14:20 | disposition home or self-care (01) | DRG 177 ==
LOC: EDUNIT# 11:12 → ER 11:13 → 4TH 12:44
PROVIDERS: ADMIT Internal Medicine; ATTEND Internal Medicine
DX: U07.1 COVID-19 (principal); J12.82 Pneumonia due to coronavirus disease 2019; Z68.41 Body mass index [BMI] 40.0-44.9, adult; Z73.0 Burn-out; G43.909 Migraine, unspecified, not intractable, without status migrainosus; M79.7 Fibromyalgia; G89.29 Other chronic pain; E66.01 Morbid (severe) obesity due to excess calories; F32.A Depression, unspecified; D72.810 Lymphocytopenia; E11.65 Type 2 diabetes mellitus with hyperglycemia; T38.0X5A Adverse effect of glucocorticoids and synthetic analogues, initial encounter
CPT/HCPCS: 36415; 71045; 80048; 80053; 80076; 82947; 83036; 83605; 83735; 84145; 85025; 85379; 86141; 87040; 94640; 94664; 94760; 94761; 96361; 96374; 96375

== ENCOUNTER 2023-02-24 06:36 | Emergency (ER) | payer MEDICAID ==
[~2023-02-24] VITALS: Ht 160 cm; Wt 125.0 kg
[~2023-02-24 06:36] MED LIST changes: +ALBU18HF2 INH; +AZIT250T12 PO; +CETI10TA17 PO; +ESTR1TAB24 PO; +METF-397 PO; +METH4TAB10 PO; +PREG200C28 PO; +TIZA-186 PO
[2023-02-24 06:41] VITALS: BP 160/103
--- NOTE | 2023-02-24 06:55 | ED Fall/Injury ---
General Chief Complaint: Upper Extremity Stated Complaint: FALL,LEFT ARM PAIN Nursing Triage Note: Patient states she was standing in a gravel driveway and she went to throw something and lost her footing and fell landing on her arm. Patient complains of left elbow pain. Source: patient History of Present Illness Date Seen by Provider: Feb 24, 2023 Time Seen by Provider: 06:42 Initial Comments PT ARRIVES VIA POV FROM HOME IN [place] PT STATES AROUND 1500 YESTERDAY AFTERNOON, SHE WAS STANDING IN HER DRIVEWAY AND STARTED TO THROW SOMETHING, AND SHE LOST HER BALANCE AND FELL, LANDING ON HER LEFT ARM AND LEG DID NOT HIT HEAD AND NO LOSS OF CONSCIOUSNESS C/O LEFT ELBOW PAIN HAS ABRASION TO LATERAL ASPECT OF LEFT LOWER LEG. NO NECK OR BACK PAIN NO HIP OR KNEE PAIN NO DIFFICULTY WALKING NO PARESTHESIAS OR MOTOR DEFICITS NO CHEST PAIN OR SHORTNESS OF BREATH NO ABDOMINAL PAIN OR NAUSEA/VOMITING PT IS RIGHT HANDED NO PRIOR INJURIES TO LEFT ARM SHE HAS NOT TAKEN ANYTHING FOR PAIN AT ANY TIME STATES SHE IS HERE BECAUSE SHE COULDN'T SLEEP--PAIN KEPT WAKING HER UP. LAST TETANUS IS UNKNOWN. PT IS NOT ON ASPIRIN OR BLOOD THINNERS PT HAS HISTORY OF FIBROMYALGIA, MIGRAINES, OBESITY. PCP: FAINA KAM Allergies and Home Medications Allergies Coded Allergies: No Known Drug Allergies (Unverified , 01/26/16) Patient Home Medication List Home Medication List Reviewed: Yes Albuterol Sulfate (Ventolin Hfa) 18 Gm Hfa.aer.ad, 2 PUFF INH Q6H PRN for SHORTNESS OF BREATH, (Reported) Entered as Reported by: ASHU ALFREDO on 12/16/21 111 Cetirizine HCl (Cetirizine HCl) 10 Mg Tablet, 10 MG PO DAILY, (Reported) Entered as Reported by: ASHU ALFREDO on 12/16/21 1119 Citalopram Hydrobromide (Citalopram HBr) 40 Mg Tablet, 40 MG PO HS, (Reported) Entered as Reported by: ASHU ALFREDO on 12/16/21 1120 Estradiol (Estradiol Tablet) 1 Mg Tablet, 1 MG PO HS, (Reported) Entered as Reported by: ASHU ALFREDO on 12/16/21 1119 Lisdexamfetamine Dimesylate (Vyvanse) 50 Mg Capsule, 50 MG PO DAILY, (Reported) Entered as Reported by: PAULA PATEL on 09/04/19 0910 Meloxicam (Meloxicam) 15 Mg Tablet, 15 MG PO DAILY Prescribed by: LUPIS PHELPS on 02/24/23 0754 Metformin HCl (Metformin HCl) 500 Mg Tablet, 500 MG PO DAILY@07 Prescribed by: NATHAN GODINEZ on 12/19/21 1057 Pregabalin (Pregabalin) 200 Mg Capsule, 200 MG PO BID, (Reported) Entered as Reported by: ASHU ALFREDO on 12/16/21 1119 Tizanidine HCl (Tizanidine HCl) 4 Mg Tablet, 4 MG PO HS, (Reported) Entered as Reported by: ASHU ALFREDO on 12/16/21 1119 Review of Systems Review of Systems Constitutional: no symptoms reported Eyes: No Symptoms Reported Ears, Nose, Mouth, Throat: no symptoms reported Respiratory: no symptoms reported Cardiovascular: no symptoms reported Gastrointestinal: no symptoms reported Genitourinary: no symptoms reported Musculoskeletal: see HPI Skin: see HPI Psychiatric/Neurological: No Symptoms Reported Past Qqexwyb-Vvldva-Jkrrxx Hx Patient Social History Tobacco Use?: No Substance use?: No Alcohol Use?: No Immunizations Up To Date Tetanus Booster (TDap): Unknown Seasonal Allergies Seasonal Allergies: Yes Past Medical History Surgery/Hospitalization HX: migraines, fibro, tubal, gallbladder, total hysterectomy Surgeries: Yes (HYST/BSO) Gallbladder, Hysterectomy, Oophorectomy, Tubal Ligation Respiratory: No Currently Using CPAP: No Currently Using BIPAP: No Cardiac: No Neurological: Yes Headaches /Migraines Reproductive Disorders: Yes Female Reproductive Disorders: Menstrual Problems [employer]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 Genitourinary: Yes Kidney Stones Gastrointestinal: Yes (S/P YULIANA) Gall Bladder Disease Musculoskeletal: Yes Fibromyalgia Endocrine: Yes (OBESITY) HEENT: Yes Hearing Impairment: Hard of Hearing, Bilateral Hearing Aide Cancer: No Psychosocial: Yes Sleep Difficulties, Anxiety, Depression Integumentary: No Blood Disorders: No Family Medical History Alcoholism 19 FATHER No Pertinent Family Hx Physical Exam Vital Signs Vital Signs - First Documented 02/24/23 06:41 Temp 36.8 Pulse 85 Resp 18 B/P (MAP) 160/103 (122) Pulse Ox 95 O2 Delivery Room Air Capillary Refill : Less Than 3 Seconds Height, Weight, BMI Height: 5'1.00" Weight: 225lbs. 0.0oz. 102.630355ch; 48.00 BMI Method:Stated General Appearance: WD/WN, no apparent distress, obese HEENT: PERRL/EOMI Neck: non-tender, full range of motion, supple, normal inspection Cardiovascular: normal peripheral pulses, regular rate, rhythm, no edema, no JVD, no murmur Respiratory: chest non-tender, normal breath sounds, no respiratory distress, no accessory muscle use Peripheral Pulses: 2+ Dorsalis Pedis (R), 2+ Left Dors-Pedis (L), 2+ Radial Pulses (R), 2+ Radial Pulses (L) Gastrointestinal: non tender, soft Back: normal inspection, no CVA tenderness, no vertebral tenderness Extremities: normal capillary refill, other (HOLDS LEFT ARM BENT AT ELBOW, HOLDING AGAINST HER SIDE. DIFFUSE TENDERNESS AROUND LEFT ELBOW. VERY MINOR ABRASION TO THE AREA--BARELY BROKE SKIN--NO BLEEDING. NO BRUISING. DISTAL MOTOR/SENSORY/VASCULAR INTACT. ABRASION TO LATERAL ASPECT OF LEFT LOWER LEG WITH MILD TENDERNESS. NO BRUISING OR DEFORMITY. FULL ROM, SENSORY/VASCULAR INTACT. 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, no motor/sensory deficits, alert, normal mood/affect, oriented x 3 Skin: normal color, warm/dry, other (ABRASIONS NOTED ABOVE) [place] Coma Score Best Eye Response: (4) Open Spontaneously Best Verbal Response: (5) Oriented Best Motor Response: (6) Obeys Commands Cyndie Total: 15 Progress/Results/Core Measures Results/Orders My Orders Orders - LUPIS PHELPS DO Forearm, Left, 2 Views (02/24/23 06:47) Humerus, Left, 2 Views (02/24/23 06:47) Elbow, Left, 3 Views (02/24/23 06:47) Tibia/Fibula, Left, 2 Views (02/24/23 06:47) Dipht,Pertuss(Acell),Tet Adult (Boostrix (02/24/23 07:00) Medications Given in ED Current Medications Medications Dose Ordered Sig/Job Route Start Time Stop Time Status Last Admin Dose Admin Diphtheria/ Tetanus/Acell Pertussis 0.5 ml ONCE ONCE IM 02/24/23 07:00 02/24/23 07:01 DC 02/24/23 06:55 0.5 ML Vital Signs/I&O 02/24/23 06:41 Temp 36.8 Pulse 85 Resp 18 B/P (MAP) 160/103 (122) Pulse Ox 95 O2 Delivery Room Air Blood Pressure Mean: 122 Progress Progress Note : Progress Note REVIEWED PRIOR RECORDS, ER VISITS, ADMITS/H&P'S/CONSULTS/DISCHARGE SUMMARIES, TESTS/PROCEDURES AT DISMISSAL, PT IS FREELY MOVING LEFT ARM WITHOUT DIFFICULTY. PT WALKS WITHOUT DIFFICULTY DISCUSSED TEST RESULTS, ANTICIPATED COURSE, SYMPTOMATIC TREATMENT, MEDICATIONS, NEED FOR FOLLOW UP AND RETURN PRECAUTIONS PT IS UNEMPLOYED. Diagnostic Imaging Comments XRAYS--ALL PER RADIOLOGIST REPORTS AT 0749 LEFT HUMERUS-- FINDINGS: No acute fracture or dislocation is seen in the left humerus. Alignment is normal and joint spaces appear preserved. IMPRESSION: 1. No acute osseous abnormality is seen in the left humerus. LEFT ELBOW-- FINDINGS: No acute fracture or dislocation is seen in the left elbow. Alignment is normal and joint spaces are preserved. There is no elbow joint effusion. IMPRESSION: 1. No acute osseous abnormalities seen in the left elbow. LEFT FOREARM-- FINDINGS: No acute fracture or dislocation is seen in the left forearm. Alignment appears normal. Joint spaces appear preserved. IMPRESSION: 1. No acute osseous abnormalities seen in the left forearm. LEFT TIB-FIB-- FINDINGS: No fracture or malalignment. Soft tissue shadows are unremarkable. IMPRESSION: No acute radiographic findings in the left tibia or fibula. Reviewed: Reviewed by Me Departure Impression Primary Impression: Fall from standing Additional Impressions: Left elbow contusion Contusion of left lower leg Multiple abrasions Anfxvymbdv-sfrzkmlot-kmszziw (DPT) vaccination administered at current visit Disposition: 01 HOME, SELF-CARE Condition: Stable Departure-Patient Inst. Decision time for Depature: 07:50 Referrals: PARMINDER KAM (PCP) Primary Care Physician Patient Instructions: Contusion (DC), General Trauma, Adult ED, Preventing Falls ED, Abrasions ED Add. Discharge Instructions: ICE TO SORE AREAS AT 20 MINUTE INTERVALS ACTIVITIES TOLERATED CONTINUE YOUR REGULAR MEDICATIONS PRESCRIBED FOLLOW UP WITH YOUR DR IN 1 WEEK IF NO BETTER All discharge instructions reviewed with patient and/or family. Voiced understanding. Scripts Meloxicam (Meloxicam) 15 Mg Tablet 15 MG PO DAILY, #10 TAB Prov: LUPIS PHELPS DO 02/24/23 LUPIS PHELPS DO Feb 24, 2023 06:55
[2023-02-24] MEDS ORDERED: TETANUS,DIPTH,PERTUSS P/F (BOOSTRIX) 0.5 ML VIAL IM ONE (07:00)
--- NOTE | 2023-02-24 07:43 | Diagnostic Imaging Report ---
HISTORY: Left arm pain TECHNIQUE: 2 views of the left humerus COMPARISON: None FINDINGS: No acute fracture or dislocation is seen in the left humerus. Alignment is normal and joint spaces appear preserved. IMPRESSION: 1. No acute osseous abnormality is seen in the left humerus. Dictated by: Dictated on workstation # [id number]
--- NOTE | 2023-02-24 07:43 | Diagnostic Imaging Report ---
HISTORY: Left elbow pain after injury. TECHNIQUE: 3 views of the left elbow COMPARISON: None FINDINGS: No acute fracture or dislocation is seen in the left elbow. Alignment is normal and joint spaces are preserved. There is no elbow joint effusion. IMPRESSION: 1. No acute osseous abnormalities seen in the left elbow. Dictated by: Dictated on workstation # [id number]
--- NOTE | 2023-02-24 07:44 | Diagnostic Imaging Report ---
HISTORY: Left forearm pain TECHNIQUE: 2 views left forearm COMPARISON: None FINDINGS: No acute fracture or dislocation is seen in the left forearm. Alignment appears normal. Joint spaces appear preserved. IMPRESSION: 1. No acute osseous abnormalities seen in the left forearm. Dictated by: Dictated on workstation # [id number]
--- NOTE | 2023-02-24 07:45 | Diagnostic Imaging Report ---
EXAM: TIBIA/FIBULA, LEFT, 2 VIEWS INDICATION: Left leg pain. Trauma. COMPARISON: None. FINDINGS: No fracture or malalignment. Soft tissue shadows are unremarkable. IMPRESSION: No acute radiographic findings in the left tibia or fibula. Dictated by: Dictated on workstation # [id number]
[2023-02-24] MEDS ORDERED: MELO15TA39 PO (07:54)
== END 2023-02-24 07:57 | disposition home or self-care (01) ==
LOC: EDUNIT# 06:36 → ER 06:39
DX: S50.02XA Contusion of left elbow, initial encounter (principal); S80.12XA Contusion of left lower leg, initial encounter; E66.9 Obesity, unspecified; Z23 Encounter for immunization; Z68.42 Body mass index [BMI] 45.0-49.9, adult; Z28.310 Unvaccinated for COVID-19; W01.0XXA Fall on same level from slipping, tripping and stumbling without subsequent striking against object, initial encounter
CPT/HCPCS: 73060; 73080; 73090; 73590; 90715

== ENCOUNTER 2023-05-08 12:49 | Outpatient (CLI) | payer MEDICAID ==
[~2023-05-08] VITALS: Ht 160 cm; Wt 120.8 kg
[~2023-05-08 12:49] MED LIST changes: +MELO15TA39 PO
[2023-05-08] MEDS ORDERED: LISI2.5T13 PO (13:07)
[2023-05-08] MEDS ORDERED: TRAZ-227 PO (13:07)
[2023-05-08] MEDS ORDERED: METF-397 PO (13:07)
[2023-05-08] MEDS ORDERED: DOXE10CA29 PO (13:07)
[2023-05-08] MEDS ORDERED: LORA10TA7 PO (13:07)
== END 2023-05-08 13:11 ==
LOC: PREOP 12:49
PROVIDERS: ATTEND Surgery
DX: Z01.818 Encounter for other preprocedural examination (principal)

== ENCOUNTER 2023-05-09 12:45 | Day surgery (SDC) | payer MEDICAID ==
[~2023-05-09] VITALS: Ht 160 cm; Wt 120.8 kg
[~2023-05-09 12:45] MED LIST changes: +DOXE10CA29 PO; +LISI2.5T13 PO; +LORA10TA7 PO; +TRAZ-227 PO
[2023-05-09] MEDS ORDERED: LACTATED RINGERS 1,000 ML IV STA (12:52)
[2023-05-09] MEDS ORDERED: LACTATED RINGERS 1,000 ML IV ONE (12:57)
[2023-05-09] MEDS ORDERED: LIDOCAINE JELLY 2% 6 ML SYRINGE MM PRN (13:00)
--- NOTE | 2023-05-09 13:03 | Progress Note-Pre Operative ---
Pre-Operative Progress Note Date of Available H&P: May 09, 2023 Date H&P Reviewed: May 09, 2023 Time H&P Reviewed: 13:00 History & Physical: No changes noted Pre-Operative Diagnosis: screening o KAYA MEJIA MD May 09, 2023 13:03
--- NOTE | 2023-05-09 13:04 | Discharge Inst-Surgical ---
D/C Lap Instructions-JACKIE Follow Up Activity as tolerated High Fiber Diet 25g or more per day Avoid Alcohol, Caffeine, Spicy [place] and Acid foods. Drink 64 fluid oz or more of fluids per day. Symptoms to Report: Fever over 101 degree F, Nausea/Vomiting If any problems/questions: Contact your physician or go to Emergency Room KAYA MEJIA MD May 09, 2023 13:04
[2023-05-09] MEDS ORDERED: ONDANSETRON 4 MG (ZOFRAN) ORAL DISSOLVE TAB PO PRN (13:15)
[2023-05-09] MEDS ORDERED: ONDANSETRON 4 MG/2 ML (SDV) Z0FRAN IVP PRN (13:15)
[2023-05-09 13:21] VITALS: BP 138/78
[2023-05-09] MEDS ORDERED: MIDAZOLAM 2 MG/2 ML (VERSED) VIAL ONE (14:30)
[2023-05-09] MEDS ORDERED: PROPOFOL INJECTION 50 ML IV ONE (14:30)
[2023-05-09] MEDS ORDERED: KETAMINE 50 MG/5 ML SYRINGE ONE (14:39)
[2023-05-09] MEDS ORDERED: LIDOCAINE JELLY 2% 6 ML SYRINGE ONE (14:41)
[2023-05-09 14:50] VITALS: BP 122/74
--- NOTE | 2023-05-09 14:54 | Anesthesia-General Post-Op ---
MAC Patient Condition Mental Status/LOC: Same as Preop Cardiovascular: Satisfactory Nausea/Vomiting: Absent Respiratory: Satisfactory Pain: Controlled Complications: Absent Post Op Complications Complications None Follow Up Care/Instructions Patient Instructions None needed. Anesthesiology Discharge Order Discharge Order Patient is doing well, no complaints, stable vital signs, no apparent adverse anesthesia problems. No complications reported per nursing. YANA GASTON CRNA May 09, 2023 14:54
[2023-05-09 14:55] VITALS: BP 122/74
--- NOTE | 2023-05-09 15:04 | Progress Note-Post Operative ---
Post-Operative Progess Note Surgeon (s)/Histology Tech (s) Surgeon KAYA MEJIA MD Histology Tech: none Pre-Operative Diagnosis screening colo Post-Operative Diagnosis chronic stage 2 ext and int hemorrhoids. Procedure & Operative Findings Date of Procedure 05/09/23 Procedure Performed/Findings colonoscopy Anesthesia Type mac Estimated Blood Loss Estimated blood loss (mL): minmal Specimens/Packing Specimens Removed none KAYA MEJIA MD May 09, 2023 15:04
[2023-05-09 15:13] VITALS: BP 122/74
--- NOTE | 2023-05-10 00:08 | OPERATIVE REPORT ---
DATE OF SERVICE: 05/09/2023 ATTENDING MANAGER ACTION: BRENTON Krishnan. PREOPERATIVE DIAGNOSIS: Screening colonoscopy. POSTOPERATIVE DIAGNOSIS: Chronic stage II external and internal hemorrhoids. PROCEDURE: Colonoscopy. SURGEON: Kaya Mejia MD ANESTHESIA: Monitored anesthesia care. ESTIMATED BLOOD LOSS: Minimal. FINDINGS: Chronic stage II external and internal hemorrhoids. DISPOSITION: The patient tolerated the procedure well. INDICATIONS: The patient is a 47-year-old female referred over to us for screening colonoscopy. She has not had a colonoscopy up to this point in her life. She states for the most part, she is doing well. She does not report any major issues with diarrhea, nor constipation as well as no red blood per rectum, nor any dark tarry stools. She also does not know of any family history of colon cancer. DESCRIPTION OF PROCEDURE: The patient was brought to the endoscopy suite and laid in the left lateral decubitus position. After adequate IV pain and sedative medications and monitored anesthesia care, a digital rectal examination was performed. Chronic stage II external and internal hemorrhoids were identified with some mild irritation, likely due to the colonic preparation. Normal sphincter tone was felt and there were no palpable masses. The endoscope was then intubated into the anus, rectum gently insufflated. The endoscope was then advanced through the valves of Romano of the rectum with no polyps or any neoplasms identified. We then proceeded through the sigmoid colon where no diverticulosis identified. The endoscope was then advanced through the remainder of the descending, transverse and ascending colon to the cecum, which were normal. There were no polyps or any neoplasms identified throughout the colon or rectum. The endoscope was then slowly withdrawn while taking a second look and suctioning of residual air with no additional findings. The patient tolerated the procedure well. We will recommend continued medical management with a high-fiber diet with a fiber supplement, which should equal or exceed 25 grams daily as well as significant amounts of water to promote soft consistency stools on a daily basis. If she is asymptomatic, she does not need another colonoscopy for another 10 years. Job ID: [id number] DocumentID: [id number] Dictated Date: 05/09/2023 14:57:51 Station Baggage Agent Date: 05/10/2023 00:05:00 Dictated By: KAYA MEJIA MD
== END 2023-05-09 15:20 | disposition home or self-care (01) ==
LOC: ENDO 12:45
PROVIDERS: ATTEND Surgery
DX: Z12.11 Encounter for screening for malignant neoplasm of colon (principal); K64.1 Second degree hemorrhoids; K64.4 Residual hemorrhoidal skin tags; E11.9 Type 2 diabetes mellitus without complications; E66.01 Morbid (severe) obesity due to excess calories; Z87.891 Personal history of nicotine dependence; Z79.84 Long term (current) use of oral hypoglycemic drugs; Z68.42 Body mass index [BMI] 45.0-49.9, adult
CPT/HCPCS: 82947

== ENCOUNTER → 2023-09-11 | Outpatient (CLI) | payer MEDICAID ==
[~2023-09-11] MED LIST changes: -PREG200C28 PO; +PREG200C29 PO
--- NOTE | 2023-09-11 14:16 | Diagnostic Imaging Report ---
Indication: Routine screening. Comparison is made with prior mammogram 08/19/2019. 2-D and 3-D bilateral screening mammography was performed with CAD. The current study was also evaluated with a Computer Aided Detection (CAD) system. Scattered fibroglandular densities are identified bilaterally. The parenchymal pattern is stable. No mass or malignant-appearing microcalcifications are seen. Axillae are unremarkable. IMPRESSION: BI-RADS Category 1 1. No mammographic features suspicious for malignancy are identified. ACR BI-RADS Category 1: Negative. Result letter will be mailed to the patient. Note: At least 10% of breast cancer is not imaged by mammography. Dictated by: Dictated on workstation # [id number]
== END ==
LOC: RAD 08:49
PROVIDERS: ATTEND Nurse Practitioner Women's Health
DX: Z12.31 Encounter for screening mammogram for malignant neoplasm of breast (principal); Z01.419 Encounter for gynecological examination (general) (routine) without abnormal findings
CPT/HCPCS: 77063; 77067